=== PATIENT | male | born 1960 | race Caucasian/White ===

== ENCOUNTER 2017-09-07 15:57 | Inpatient (IN) | payer OTHER ==
[~2017-09-07] VITALS: Ht 175.3 cm; Wt 93.5 kg
[2017-09-07 18:53] LABS: HEMATOCRIT 42.7 % (38.0-50.0); HEMOGLOBIN 14.8 G/DL (12.5-16.6); MCH 29.4 PG (29.0-34.0); MCHC 34.7 G/DL (30.0-36.0); MCV 84.7 FL (86-99); PLATELET COUNT 273 K/uL (156-360); RBC DIS.WIDTH-CV 13.3 % (11.8-14.6); RBC DIS.WIDTH-SD 40.8 % (39-53); RED BLOOD COUNT 5.04 M/uL (4.00-5.50)
[2017-09-07 19:11] LABS: CHLORIDE 106 MEQ/L (99-109); POTASSIUM 3.9 MEQ/L (3.7-5.4); SODIUM 142 MEQ/L (136-147)
[2017-09-07 19:17] LABS: CREATININE 0.8 MG/DL (0.6-1.3); GFR ESTIMATE (CALCULATED) > 59 mL/min/ (58.99-99999); GLUCOSE 250 mg/dL (70-99); UREA NITROGEN (BUN) 11 mg/dL (9-23)
[2017-09-07] MEDS ORDERED: AMARYL4 MG PO (19:18)
[2017-09-07] MEDS ORDERED: VICTOZA0.6 MG/0.1 SC (19:19)
[2017-09-07] MEDS ORDERED: CYANOCOBAL1000 MCG/2 IM (19:19)
[2017-09-07] MEDS ORDERED: LISINOPRIL40 MG PO (19:19)
[2017-09-07] MEDS ORDERED: LEVOXYL200 MCG PO ×2 (19:20)
[2017-09-07] MEDS ORDERED: PRAVACHOL10 MG PO (19:20)
[2017-09-07] MEDS ORDERED: METFORMIN HCL1000 MG PO (19:21)
[2017-09-07] MEDS ORDERED: VITAMIN D31000 UNIT PO (19:21)
[2017-09-07] MEDS ORDERED: FISH OIL 1,0001 EAC7 PO (19:21)
[2017-09-07 21:44] VITALS: BP 162/92
[2017-09-07 23:09] VITALS: BP 171/87
[2017-09-08] VITALS (7 sets, daily range): BP systolic 98–162; BP diastolic 55–91
[2017-09-08 21:05] LABS: APPEARANCE CLEAR ((CLEAR)); BILIRUBIN NEGATIVE; BLOOD NEGATIVE; COLOR STRAW ((YELLOW)); GLUCOSE (STRIP) >=500; KETONES 20; LEUKOCYTES NEGATIVE; NITRITE NEGATIVE; PROTEIN (STRIP) NEGATIVE; SPECIFIC GRAVITY 1.029 (1.000-1.030); UCUL ADDED? NO; UROBILINOGEN 0.2 MG/DL (0.2-1.0)
[2017-09-09 00:05] VITALS: BP 143/68
[2017-09-09 04:10] VITALS: BP 137/85
[2017-09-09 05:43] LABS: HEMATOCRIT 38.6 % (38.0-50.0); MCH 28.3 PG (29.0-34.0); MCHC 32.9 G/DL (30.0-36.0); PLATELET COUNT 250 K/uL (156-360); RBC DIS.WIDTH-CV 13.3 % (11.8-14.6); RBC DIS.WIDTH-SD 42.4 % (39-53); RED BLOOD COUNT 4.49 M/uL (4.00-5.50); WHITE BLOOD COUNT 14.8 K/uL (4.1-10.2)
[2017-09-09 05:51] LABS: HEMOGLOBIN 12.7 G/DL (12.5-16.6)
[2017-09-09 06:02] LABS: CHLORIDE 104 MEQ/L (99-109); CREATININE 0.9 MG/DL (0.6-1.3); GFR ESTIMATE (CALCULATED) > 59 mL/min/ (58.99-99999); GLUCOSE 206 mg/dL (70-99); POTASSIUM 3.9 MEQ/L (3.7-5.4); SODIUM 140 MEQ/L (136-147); UREA NITROGEN (BUN) 11 mg/dL (9-23)
[2017-09-09 08:24] VITALS: BP 162/93
[2017-09-09 09:04] LABS: HEMOGLOBIN A1c (GLYCOHEMOGLOB) 9.1 % (Below 5.7)
[2017-09-09] MEDS ORDERED: ENDOCET 5-3251 EACH PO (13:09)
[2017-09-09] MEDS ORDERED: ASPIRIN EC325 MG PO (13:09)
== END 2017-09-09 14:30 | disposition home or self-care (01) | DRG 482 ==
LOC: EME 15:57 → 3EAST 20:30 → EDOF 20:30 → ENRESERV 20:32 → 3EAST 21:35
PROVIDERS: Internal Medicine; Orthopaedic Surgery; Physician Assistant
PROC: 0QS734Z Reposition Left Upper Femur with Internal Fixation Device, Percutaneous Approach (ICD-10-PCS; principal; 2017-09-08)
DX: S72.032A Displaced midcervical fracture of left femur, initial encounter for closed fracture (principal); E11.65 Type 2 diabetes mellitus with hyperglycemia; E03.9 Hypothyroidism, unspecified; E78.5 Hyperlipidemia, unspecified; I44.0 Atrioventricular block, first degree; I10 Essential (primary) hypertension; V00.321A Fall from snow-skis, initial encounter; Z79.84 Long term (current) use of oral hypoglycemic drugs; Y93.23 Activity, snow (alpine) (downhill) skiing, snowboarding, sledding, tobogganing and snow tubing; Z88.0 Allergy status to penicillin
CPT/HCPCS: 73502; 76000; 80048; 81003; 82948; 83036; 85027; 93005; 99281; 99283; C1713; J0690; J1100; J1815; J2250; J2270; J2405; J2710; J3010; J7030